=== PATIENT | female | born 1960 | race Caucasian/White ===

== ENCOUNTER 2020-08-15 06:48 | Observation (INO) ==
[2020-08-15] MEDS ORDERED: methylPREDNISolone 125 MG/2 ML VIAL IVP ONE (07:10)
[2020-08-15] MEDS ORDERED: Ipratropium/Albuterol Neb 3 ML IH ONE (07:24)
[2020-08-15] MEDS ORDERED: 0.9 % Sodium Chloride 1,000 ML IVC ONE (07:24)
[2020-08-15] MEDS ORDERED: Albuterol 2.5 MG/3 ML NEBULIZER IH ONE (07:25)
[2020-08-15] MEDS: Ipratropium/Albuterol Neb 3 ML ONE (07:31)
[2020-08-15 07:45] LABS: Basophils # 0.1 K/mcL (0.0-0.2); Basophils % 0.9 %; Eosinophils # 0.2 K/mcL (0.0-0.6); Eosinophils % 1.9 %; Hematocrit 44.9 % (35.3-44.9); Immature Granulocytes % 0.2 % (0-4); Lymphocytes # 1.1 K/mcL (0.6-4.6); Lymphocytes % 12.5 %; Mean Corpuscular HGB Conc 33.4 g/dL (31.6-35.5); Mean Corpuscular Hemoglobin 28.8 pg (28.0-33.3); Mean Corpuscular Volume 86.3 fL (83.0-100.0); Monocytes # 0.7 K/mcL (0.0-1.3); Monocytes % 8.2 %; Neutrophils # 6.7 K/mcL (1.6-8.9); Platelet Count 221 K/mcL (140-400); Red Cell Distribution Width 12.5 % (11.5-14.5); Segmented Neutrophils % 76.3 %; White Blood Count 8.8 K/mcL (4.3-11.1)
[2020-08-15 07:50] LABS: VBG HCO3 26 mEq/L (21-27); VBG PCO2 40 mmHg (41-51); VBG PH 7.43 pH Units (7.32-7.42); VBG PO2 67 mmHg (25-50)
[2020-08-15 07:58] LABS: Alanine Aminotransferase 19 Units/L (7-52); Albumin 4.4 g/dL (3.5-5.7); Albumin/Globulin Ratio 1.5 (1.1-2.2); Alkaline Phosphatase 60 Units/L (34-104); Aspartate Amino Transferase 17 Units/L (13-39); BUN/Creatinine Ratio 24 (6-26); Bilirubin,Direct 0.1 mg/dL (0.0-0.2); Bilirubin,Indirect 0.3 mg/dL (0.0-1.0); Bilirubin,Total 0.4 mg/dL (0.3-1.0); Blood Urea Nitrogen 15 mg/dL (8-23); Calcium 9.3 mg/dL (8.6-10.3); Carbon Dioxide 26 mEq/L (23-29); Chloride 103 mEq/L (98-107); Globulin 2.9 g/dL (2.4-3.5); Glucose 126 mg/dL (70-105); Osmolality,Calculated 290 (280-300); Potassium 3.4 mEq/L (3.5-5.1); Sodium 139 mEq/L (136-145); Total Protein 7.3 g/dL (6.4-8.9); eGFR For African Americans > 60 (> 60); eGFR For Non-African Americans > 60 (> 60)
[2020-08-15 07:59] LABS: Activated Partial Thrombo Time 35.8 Seconds (26.0-36.0)
[2020-08-15 08:02] LABS: Troponin I < 0.03 ng/mL (< 0.04)
[2020-08-15] MEDS ORDERED: Ondansetron 4 MG/2 ML VIAL IVP PRN (09:39)
[2020-08-15] MEDS ORDERED: Mag Hydrox/Al Hydrox/Simeth 30 ML UDC PO PRN (09:39)
[2020-08-15] MEDS ORDERED: Melatonin 3 MG TABLET PO PRN (09:39)
[2020-08-15] MEDS ORDERED: Naloxone 0.4 MG/ML INJ IVP PRN (09:39)
[2020-08-15] MEDS ORDERED: Ondansetron ODT 4 MG TAB.RAPDIS SL PRN (09:39)
[2020-08-15] MEDS ORDERED: MOM Conc 10 ML UD.LIQ PO PRN (09:39)
[2020-08-15] MEDS: Ipratropium/Albuterol Neb 3 ML IH SCH ×2 (11:39→15:25)
[2020-08-15] MEDS ORDERED: Ipratropium/Albuterol Neb 3 ML IH PRN (15:26)
[2020-08-15] MEDS: MethylPREDNISolone 40 MG/ML VIAL IVP SCH (16:15)
[2020-08-15] MEDS: Nicotine 14 MG PATCH.TD24 TD SCH (16:22)
[2020-08-15 16:58] LABS: Bilirubin,Urine Negative (Negative); Blood,Urine Trace-intact (Negative); Clarity,Urine Clear (Clear); Color,Urine Yellow (Yellow); Glucose,Urine (UA) Normal (Normal); Ketones,Urine Negative (Negative); Leukocyte Esterase,Urine Negative (Negative); Nitrite,Urine Negative (Negative); Protein,Urine Trace mg/dL (Neg-Trace); Specific Gravity,Urine 1.025 (1.010-1.025); Urobilinogen,Urine Normal (Normal)
[2020-08-15 17:31] LABS: Amorphous Sediment,Urine Few per hpf (None-Few); RBC,Urine 0-3 per hpf (0-3); Squamous Epithelial Cell,Urine Few per hpf (None-Few)
[2020-08-16] MEDS: MethylPREDNISolone 40 MG/ML VIAL IVP SCH ×2 (00:45→08:37)
[2020-08-16 05:26] LABS: Hematocrit 40.3 % (35.3-44.9); Hemoglobin 13.3 g/dL (11.5-15.4); Mean Corpuscular Hemoglobin 28.7 pg (28.0-33.3); Platelet Count 229 K/mcL (140-400); Red Blood Count 4.63 M/mcL (3.82-4.97); Red Cell Distribution Width 12.6 % (11.5-14.5); White Blood Count 11.3 K/mcL (4.3-11.1)
[2020-08-16 05:44] LABS: Alanine Aminotransferase 14 Units/L (7-52); Albumin 3.8 g/dL (3.5-5.7); Albumin/Globulin Ratio 1.5 (1.1-2.2); Alkaline Phosphatase 46 Units/L (34-104); Aspartate Amino Transferase 10 Units/L (13-39); BUN/Creatinine Ratio 34 (6-26); Bilirubin,Total 0.3 mg/dL (0.3-1.0); Blood Urea Nitrogen 20 mg/dL (8-23); Calcium 8.8 mg/dL (8.6-10.3); Carbon Dioxide 27 mEq/L (23-29); Chloride 105 mEq/L (98-107); Globulin 2.5 g/dL (2.4-3.5); Glucose 146 mg/dL (70-105); Magnesium 1.9 mg/dL (1.6-2.6); Osmolality,Calculated 295 (280-300); Phosphorous 3.6 mg/dL (2.7-4.5); Potassium 3.5 mEq/L (3.5-5.1); Sodium 140 mEq/L (136-145); Total Protein 6.3 g/dL (6.4-8.9); eGFR For African Americans > 60 (> 60); eGFR For Non-African Americans > 60 (> 60)
[2020-08-16] MEDS ORDERED: *HR* Enoxaparin 40 MG/0.4 ML SYRINGE SQ SCH (06:00)
[2020-08-16] MEDS: Nicotine 14 MG PATCH.TD24 TD SCH (08:37)
[2020-08-16] MEDS ORDERED: Metoprolol 100 MG TABLET PO SCH (09:00)
[2020-08-16 11:32] VITALS: BP 113/73
== END 2020-08-16 14:20 | disposition home or self-care (01) ==
LOC: INPGRE 06:48 → EMEROOGRE 06:48 → INPGRE 10:09
PROVIDERS: ADMIT Family Medicine; ATTEND Family Medicine